=== PATIENT | male | born 1940 | race Caucasian/White ===

== ENCOUNTER 2021-02-06 14:41 | Emergency (ER) | payer MEDICARE, OTHER ==
[2021-02-06] MEDS ORDERED: Sodium Chloride 0.9% 10 ML Syringe FLUSH PRN (14:58)
--- NOTE | 2021-02-06 15:05 | EDM.PDOC ---
ED HPI GENERAL MEDICAL PROBLEM - General Chief Complaint: General Stated Complaint: aspiration pneumonia Time Seen by Provider: 02/06/21 15:00 Source of Information: Reports: Shelter Records History Limitations: Reports: Altered Mental Status (Dementia) - History of Present Illness INITIAL COMMENTS - FREE TEXT/NARRATIVE: [facility] possible [facility]. The HPI is unobtainable from this patient with his history of dementia. HPI is primarily obtained from EMS as well as somewhat from the jail. According to EMS the patient questionably aspirated yesterday. Today the jail had completed a chest x-ray and was told to symptom to the ER with concerns of aspiration pneumonia. He is not noted to be hypoxic he is not tachypneic or no fever according to the jail. He is a code level 2. Rest of the HPI is unobtainable as the nursing staff at the jail gives very little information and the patient with his history of dementia is unable to relate any HPI. - Related Data Allergies Allergy/AdvReac Type Severity Reaction Status Date / Time No Known Allergies Allergy Verified 02/06/21 17:35 Home Meds: Home Meds Amoxicillin/Potassium Clav [Augmentin 875-125 Tablet] 1 each PO BID #20 tablet 02/06/21 [Rx] ED ROS GENERAL - Review of Systems Review Of Systems: Unable To Obtain Reason Not Obtained: Dementia ED EXAM, GENERAL - Physical Exam Exam: See Below Exam Limited By: Altered Mental Status (Dementia) General Appearance: Alert, WD/WN, No Apparent Distress Eye Exam: Bilateral Eye: EOMI Ears: Normal External Exam Nose: Normal Inspection Throat/Mouth: Normal Inspection Head: Atraumatic, Normocephalic Neck: Normal Inspection, Supple, Non-Tender, Full Range of Motion Respiratory/Chest: No Respiratory Distress, No Accessory Muscle Use, Chest Non- Tender, Rhonchi (faint bilateral rhonchi with faint expiratory wheezing bilaterally. ) Cardiovascular: Normal Peripheral Pulses, Regular Rate, Rhythm, Tachycardia GI/Abdominal: Normal Bowel Sounds, Soft Back Exam: Normal Inspection Extremities: Normal Inspection Neurological: Alert, Confused (at baseline per jail. ) Psychiatric: Flat Affect Skin Exam: Warm, Dry, Intact, Normal Color, No Rash Lymphatic: No Adenopathy Course - Vital Signs Last Recorded V/S: Last Vital Signs Temp 98.2 F 02/06/21 14:50 Pulse 102 H 02/06/21 14:50 Resp 18 02/06/21 14:50 BP 152/88 H 02/06/21 14:50 Pulse Ox 95 02/06/21 14:50 - Orders/Labs/Meds Orders: Active Orders 24 hr Category Date Time Status Peripheral IV Care [RC] . DIRECTED Care 02/06/21 14:58 Active Chest 1V Frontal [CR] Stat Exams 02/06/21 14:55 Taken CORONAVIRUS COVID-19 NOEMI [MOLEC] Stat Lab 02/06/21 15:50 Received CULTURE BLOOD [BC] Stat Lab 02/06/21 15:50 Received CULTURE BLOOD [BC] Stat Lab 02/06/21 15:50 Received UA RFX ANGELO AND CULT IF INDIC [URIN] Stat Lab 02/06/21 14:55 Ordered Sodium Chloride 0.9% [Saline Flush] Med 02/06/21 14:58 Active 10 ml FLUSH ASDIRECTED PRN Blood Culture x2 Reflex Set [OM.PC] Stat Oth 02/06/21 14:55 Ordered Peripheral IV Insertion Adult [OM.PC] Stat Oth 02/06/21 14:55 Ordered Medication Orders Sodium Chloride (Sodium Chloride 0.9% 10 Ml Syringe) 10 ml FLUSH ASDIRECTED PRN PRN Reason: Keep Vein Open Last Admin: 02/06/21 17:08 Dose: 10 ml Documented by: NUBIA Labs: Laboratory Tests 02/06/21 02/06/21 02/06/21 Range/Units 15:50 15:50 15:50 WBC 13.7 H (4.0-10.2) K/uL RBC 4.46 (4.33-5.41) M/uL Hgb 13.7 (13.1-16.8) g/dL Hct 41.4 (39.0-49.0) % MCV 92.8 (84.0-98.0) fL MCH 30.7 (28.2-33.3) pg MCHC 33.1 (31.7-36.0) g/dL RDW 13.6 (11.2-14.1) % Plt Count 289 (150-350) K/uL Neut % (Auto) 80.0 (45.0-80.0) % Lymph % (Auto) 11.2 (10.0-50.0) % [place] % (Auto) 8.4 (2.0-14.0) % Eos % (Auto) 0.3 (0.0-5.0) % Baso % (Auto) 0.1 (0.0-2.0) % Neut # (Auto) 10.98 H (1.40-7.00) K/uL Lymph # (Auto) 1.54 (0.50-3.50) K/uL [place] # (Auto) 1.16 H (0.00-1.00) K/uL Eos # (Auto) 0.04 (0.00-0.50) K/uL Baso # (Auto) 0.02 (0.00-0.20) K/uL Sodium 151 H* (136-145) mmol/L Potassium 4.3 (3.5-5.1) mmol/L Chloride 113 H (98-107) mmol/L Carbon Dioxide 25.1 (21.0-32.0) mmol/L Anion Gap 17.2 H (7-15) meq/L BUN 27 H (7-18) mg/dL Creatinine 0.88 (0.51-1.17) mg/dL Est Cr Clr Drug Dosing TNP Estimated GFR (MDRD) > 60 mL/min Glucose 100 H (70-99) mg/dL Lactic Acid 1.5 (0.4-2.0) mmol/L Calcium 9.4 (8.5-10.1) mg/dL Total Bilirubin 0.8 (0.2-1.0) mg/dL AST 40 H (15-37) U/L ALT 13 (12-78) U/L Alkaline Phosphatase 47 (46-116) IU/L Troponin I High Sens 8 (<=76) ng/L C-Reactive Protein 12.4 H (<=0.9) mg/dL NT-Pro-B Natriuret Pep 128 H (0-125) pg/mL Total Protein 7.3 (6.4-8.2) g/dL Albumin 2.6 L (3.4-5.0) g/dL SARS-CoV-2 Ag (Rapid) (NEGATIVE) 02/06/21 Range/Units 15:50 WBC (4.0-10.2) K/uL RBC (4.33-5.41) M/uL Hgb (13.1-16.8) g/dL Hct (39.0-49.0) % MCV (84.0-98.0) fL MCH (28.2-33.3) pg MCHC (31.7-36.0) g/dL RDW (11.2-14.1) % Plt Count (150-350) K/uL Neut % (Auto) (45.0-80.0) % Lymph % (Auto) (10.0-50.0) % [place] % (Auto) (2.0-14.0) % Eos % (Auto) (0.0-5.0) % Baso % (Auto) (0.0-2.0) % Neut # (Auto) (1.40-7.00) K/uL Lymph # (Auto) (0.50-3.50) K/uL [place] # (Auto) (0.00-1.00) K/uL Eos # (Auto) (0.00-0.50) K/uL Baso # (Auto) (0.00-0.20) K/uL Sodium (136-145) mmol/L Potassium (3.5-5.1) mmol/L Chloride (98-107) mmol/L Carbon Dioxide (21.0-32.0) mmol/L Anion Gap (7-15) meq/L BUN (7-18) mg/dL Creatinine (0.51-1.17) mg/dL Est Cr Clr Drug Dosing Estimated GFR (MDRD) mL/min Glucose (70-99) mg/dL Lactic Acid (0.4-2.0) mmol/L Calcium (8.5-10.1) mg/dL Total Bilirubin (0.2-1.0) mg/dL AST (15-37) U/L ALT (12-78) U/L Alkaline Phosphatase (46-116) IU/L Troponin I High Sens (<=76) ng/L C-Reactive Protein (<=0.9) mg/dL NT-Pro-B Natriuret Pep (0-125) pg/mL Total Protein (6.4-8.2) g/dL Albumin (3.4-5.0) g/dL SARS-CoV-2 Ag (Rapid) Negative (NEGATIVE) Meds: Medications Generic Name Dose Route Start Last Admin Trade Name Chloe PRN Reason Stop Dose Admin Sodium Chloride 10 ml 02/06/21 14:58 02/06/21 17:08 Sodium Chloride 0.9% 10 Ml Syringe FLUSH 10 ml ASDIRECTED PRN Administration Keep Vein Open Discontinued Medications Generic Name Dose Route Start Last Admin Trade Name Chloe PRN Reason Stop Dose Admin Lactated Ringer's 1,000 mls @ 1,000 mls/hr 02/06/21 16:57 02/06/21 17:07 Ringers, Lactated IV 02/06/21 17:56 1,000 mls/hr .BOLUS ONE Administration Ampicillin Sodium/Sulbactam 100 mls @ 200 mls/hr 02/06/21 17:14 02/06/21 17:36 Sodium 1.5 gm/ Sodium Chloride IV 02/06/21 17:43 200 mls/hr ONETIME ONE Administration - Radiology Interpretation Free Text/Narrative:: Chest x-ray per radiology completed earlier in the day from the clinic. Shows bilateral infiltration much more prominent on the left than the right etiology may represent aspiration pneumonia or other pneumonia but should be correlated clinically. ASD of the aorta. Chest x-ray this afternoon shows little change from previous study or perhaps slightly increased infiltrate present. Patchy infiltration suggested in the left infrahilar area and lower lung field. There may be some minimal infiltrate at the right lung base additionally. Poor inspiration. No other change or new process was identified. - Re-Assessments/Exams Free Text/Narrative Re-Assessment/Exam: 02/06/21 21:40 patient is clearly not in any respiratory distress he is not hypoxic or tachycardic or is increased work of breathing. White blood cell count 13.7. CMP with a sodium of 151 which is most likely due to dehydration and poor oral intake. Creatinine 0.8 BUN 27 glucose 100 Lactic acid is normal at 1.5. Troponin is negative at 8. CRP 12.8. His Covid is negative. His chest x-ray is concerning for aspiration pneumonia. He was covered with ampicillin sulbactam 1.5 g. He does not show any signs of sepsis at this time. He was given lactated Ringer's 500 mill bolus then 125 an hour. Patient's clinical situation has not changed. He is stable and his vitals are stable. He is in no distress not requiring any oxygen. We will increase oral hydration of free water at the jail. Also placed him on Augmentin for aspiration pneumonia. Anything new or worse he is to recheck. Primary care to follow him closely. Discharge instructions were relayed to the jail and the patient was discharged back. Departure - Departure Time of Disposition: 17:52 Disposition: DC/Tfer to SNF 03 Clinical Impression: Acute hypernatremia Aspiration pneumonia Qualifiers: Aspiration pneumonia type: unspecified Laterality: bilateral Lung location: unspecified part of lung Qualified Code(s): J69.0 - Pneumonitis due to inhalation of food and vomit - Discharge Information Prescriptions: Amoxicillin/Potassium Clav [Augmentin 875-125 Tablet] 1 each PO BID #20 tablet Instructions: Hypernatremia, [id number], Community-Acquired Pneumonia, Adult, [id number] Referrals: Libby High MD [Primary Care Provider] - Forms: ED Department Discharge Additional Instructions: Increase free fluids over the next few days as much as possible. Augmentin 1 tablet by mouth twice daily for 10 days. First dose given in the ED and RX sent to the pharmacy. Continue all other previous orders. Repeat BMP on tuesday or tuesday for recheck of Sodium. Contact PCP and notify of bilateral aspiration pneumonia and hypernatremia. Return to the ED if new or worsening symptoms. Notify PCP of patient status and plan for repeat labs. Sepsis Event Note (ED) - Focused Exam Vital Signs: Vital Signs Temp Pulse Resp BP Pulse Ox 02/06/21 14:50 98.2 F 102 H 18 152/88 H 95 02/06/21 14:49 98.2 F 102 H 20 152/88 H 95 - My Orders Last 24 Hours: My Active Orders 02/06/21 14:55 Chest 1V Frontal [CR] Stat UA RFX ANGELO AND CULT IF INDIC [URIN] Stat Blood Culture x2 Reflex Set [OM.PC] Stat Peripheral IV Insertion Adult [OM.PC] Stat 02/06/21 14:58 Peripheral IV Care [RC] . DIRECTED Sodium Chloride 0.9% [Saline Flush] 10 ml FLUSH ASDIRECTED PRN 02/06/21 15:50 CORONAVIRUS COVID-19 NOEMI [MOLEC] Stat CULTURE BLOOD [BC] Stat CULTURE BLOOD [BC] Stat - Assessment/Plan Last 24 Hours: My Active Orders 02/06/21 14:55 Chest 1V Frontal [CR] Stat UA RFX ANGELO AND CULT IF INDIC [URIN] Stat Blood Culture x2 Reflex Set [OM.PC] Stat Peripheral IV Insertion Adult [OM.PC] Stat 02/06/21 14:58 Peripheral IV Care [RC] . DIRECTED Sodium Chloride 0.9% [Saline Flush] 10 ml FLUSH ASDIRECTED PRN 02/06/21 15:50 CORONAVIRUS COVID-19 NOEMI [MOLEC] Stat CULTURE BLOOD [BC] Stat CULTURE BLOOD [BC] Stat
[2021-02-06 16:25] LABS: CHLORIDE,CL 113 mmol/L (98-107)
[2021-02-06 16:40] LABS: ANION GAP 17.2 meq/L (7-15); SODIUM,NA 151 mmol/L (136-145)
[2021-02-06] MEDS ORDERED: Lactated Ringers 1,000 ML IV ONE (16:57)
[2021-02-06] MEDS ORDERED: Ampicillin/Sulbactam Na 1.5 GM in Sodium Chloride 0.9% 100 ML IV ONE (17:14)
--- NOTE | 2021-02-06 21:41 | PCM.EKG ---
#1 Interpretation EKG Date: 02/06/21 Time: 15:16 Rhythm: NSR Rate (Beats/Min): 105 [place]: Normal P-Wave: Present QRS: RBBB (incomplete) ST-T: Normal QT: Normal
== END 2021-02-06 19:20 ==
LOC: LL.ED 14:41
DX: J69.0 Pneumonitis due to inhalation of food and vomit (principal); E87.0 Hyperosmolality and hypernatremia; Z20.822 Contact with and (suspected) exposure to COVID-19
CPT/HCPCS: 36415; 71045; 80053; 83605; 83880; 84484; 85025; 86140; 87040; 87426; 93005; 96365; 99285; J0295; J7120